=== PATIENT | female | born 1975 | race Caucasian/White ===

== ENCOUNTER 2017-09-12 18:38 | Emergency (ER) | payer MEDICARE, MEDICAID ==
[~2017-09-12] VITALS: Ht 170.2 cm; Wt 84.1 kg
[~2017-09-12 18:38] MED LIST: CLON1TAB4 PO; CLOZ100T13 PO; HALO20TA7 PO; LAMO150T PO; VENL150C58 PO
[2017-09-12] MEDS ORDERED: TETanus/Pertussis (Acell)/Diphther VAC/PF (Tdap-Adult) 0.5ml syringe IMVAC ONE (19:00)
[2017-09-12 19:33] VITALS: BP 123/85
== END 2017-09-12 19:34 | disposition home or self-care (01) ==
LOC: ER 18:38
DX: S20.219A Contusion of unspecified front wall of thorax, initial encounter (principal); F17.210 Nicotine dependence, cigarettes, uncomplicated; F10.10 Alcohol abuse, uncomplicated; V43.52XA Car driver injured in collision with other type car in traffic accident, initial encounter; Y93.89 Activity, other specified; Y92.410 Unspecified street and highway as the place of occurrence of the external cause; Y99.8 Other external cause status
CPT/HCPCS: 71020; 90471; 90715; 93005; 99284

== ENCOUNTER 2018-11-28 14:39 | Outpatient (CLI) | payer MEDICARE, MEDICAID ==
[~2018-11-28 14:39] MED LIST changes: +CLON1TAB12 PO; -CLON1TAB4 PO
== END 2018-11-28 23:59 | disposition home or self-care (01) ==
LOC: RAD 14:39
PROVIDERS: ATTEND Family Medicine
DX: R56.9 Unspecified convulsions (principal); F17.200 Nicotine dependence, unspecified, uncomplicated
CPT/HCPCS: 95816

== ENCOUNTER 2018-12-31 15:55 | Inpatient (IN) | payer MEDICARE, MEDICAID ==
[~2018-12-31] VITALS: Ht 170.2 cm; Wt 70.0 kg
[2018-12-31] MEDS ORDERED: normal saline 1000ml 1,000 ML IV ONE (16:10)
[2018-12-31 16:49] LABS: ALANINE AMINOTRANSFERASE 15 U/L (12-78); ALBUMIN 3.2 G/DL (3.4-5.0); ALBUMIN/GLOBULIN RATIO 1.1 (1.1-1.5); ALKALINE PHOSPHATASE 82 IU/L (46-116); ANION GAP 7 (8-16); ASPARTATE AMINO TRANSFERASE 9 U/L (10-37); BILIRUBIN,TOTAL 0.3 MG/DL (0.1-1.0); BLOOD UREA NITROGEN 5 MG/DL (7-18); CALCIUM 8.2 MG/DL (8.5-10.1); CHLORIDE 105 MMOL/L (99-107); CREATININE 0.84 MG/DL (0.40-0.90); ETHANOL < 0.010 GM/DL (0.0-0.010); GLUCOSE 78 MG/DL (70-104); SODIUM 141 MMOL/L (135-145); TOTAL CARBON DIOXIDE 29.5 MMOL/L (24-32); eGFR 73 ML/MIN
[2018-12-31 16:56] LABS: PARTIAL THROMBOPLASTIN TIME 28 SECONDS (22-32)
[2018-12-31 16:58] LABS: BASOPHILS % (AUTO) 0.3 % (0-1); EOSINOPHILS % (AUTO) 0.4 % (0-6); HEMATOCRIT 41.1 % (35.0-45.0); HEMOGLOBIN 13.7 g/dl (12.0-16.0); LYMPHOCYTES # (AUTO) 2.7 X10'3 (1.1-4.8); LYMPHOCYTES % (AUTO) 33.9 % (21-51); MEAN CORPUSCULAR HEMOGLOBIN 29.9 PG (27.0-31.0); MEAN CORPUSCULAR HGB CONC 33.4 g/dL (33.0-36.5); MEAN CORPUSCULAR VOLUME 89.6 FL (78-98); MEAN PLATELET VOLUME 8.5 FL (7.4-10.4); MONOCYTES # (AUTO) 0.5 X10'3 (0-0.9); NEUTROPHILS # (AUTO) 4.6 X10'3 (1.8-7.7); NEUTROPHILS % (AUTO) 58.4 % (42-75); PLATELET COUNT 197 X10'3 (140-440); RED BLOOD COUNT 4.58 X10'6 (4.20-5.60); RED CELL DISTRIBUTION WIDTH 14.4 % (11.5-14.5); WHITE BLOOD COUNT 7.8 X10'3 (4.5-11.0)
[2018-12-31] MEDS ORDERED: CLOZ25TA36 PO (17:25)
[2018-12-31] MEDS ORDERED: BUSP30TA3 PO (17:25)
[2018-12-31] MEDS ORDERED: BUPR150T27 PO (17:25)
[2018-12-31] MEDS ORDERED: HALO20TA7 PO (17:25)
[2018-12-31] MEDS ORDERED: CLOZ200T PO (17:25)
[2018-12-31] MEDS ORDERED: LAMO200T PO (17:25)
[2018-12-31] MEDS ORDERED: DIVA500T9 PO (17:25)
[2018-12-31] MEDS ORDERED: BENZ2TAB PO (17:25)
--- NOTE | 2018-12-31 17:32 | NUR ---
PATIENT TO CT.
--- NOTE | 2018-12-31 17:38 | NUR ---
patient back from CT
[2018-12-31 17:48] LABS: URINE AMPHETAMINE SCREEN NEGATIVE (Neg); URINE BARBITUATE SCREEN NEGATIVE (Neg); URINE BENZODIAZEPINES SCREEN NEGATIVE (Neg); URINE CANNABINOID SCREEN NEGATIVE (Neg); URINE COCAINE SCREEN NEGATIVE (Neg); URINE METHADONE SCREEN NEGATIVE (Neg); URINE OPIATE SCREEN NEGATIVE (Neg); URINE PHENCYCLIDINE SCREEN NEGATIVE (Neg)
[2018-12-31] MEDS ORDERED: LORazepam 2 mg/ml vial IV ONE (17:50)
--- NOTE | 2018-12-31 17:50 | NUR ---
Patient trying to climb out of bed, standing up in bed. Patient redirected to stay in bed. Dr. Cassidy and Doreen RN notified, no sitters available.
--- NOTE | 2018-12-31 18:02 | NUR ---
patient's at bedside.
--- NOTE | 2018-12-31 18:07 | NUR ---
Patient assisted to bedside comode. Patient able to stand and pivot with standby.
[2018-12-31 18:14] LABS: CLARITY,URINE CLEAR (Clear); COLOR,URINE YELLOW (Yellow); GLUCOSE, URINE NEGATIVE (Neg); KETONES,URINE TRACE mg/dl (Neg); LEUKOCYTE ESTERASE ,URINE NEGATIVE (Neg); NITRITES, URINE NEGATIVE (Neg); OCCULT BLOOD,URINE NEGATIVE (Neg); PH,URINE 7.5 (4.8-8.0); PROTEIN,URINE NEGATIVE (Neg); UROBILINOGEN,URINE 0.2 E.U/dL (0.2-1.0)
[2018-12-31 18:17] LABS: UA COLLECTION TYPE STRAIGHT CATH
[2018-12-31] MEDS ORDERED: magnesium 4gm in 100ml NS 100 ML IV PRN (18:40)
[2018-12-31] MEDS ORDERED: mag hydrox/Alum hydrox/simeth 30ml oral suspension PO PRN (18:40)
[2018-12-31] MEDS ORDERED: acetaminophen 325mg tablet PO PRN ×2 (18:40)
[2018-12-31] MEDS ORDERED: magnesium hydroxide 30ml (MOM) UD suspension PO PRN (18:40)
[2018-12-31] MEDS ORDERED: magnesium Cl slow-release 64mg tablet PO PRN (18:40)
[2018-12-31] MEDS ORDERED: potassium Cl 40MEQ/NS 500ml 500 ML IV PRN ×2 (18:40)
[2018-12-31] MEDS ORDERED: ondansetron/PF 4mg/2ml inj IV PRN (18:40)
[2018-12-31] MEDS ORDERED: magnesium 2GM in 50ml NS 50 ML IV PRN (18:40)
[2018-12-31] MEDS ORDERED: potassium Cl 20 mEq SR tablet PO PRN ×2 (18:40)
[2018-12-31] MEDS: normal saline 1000ml 1,000 ML IV SCH (19:13)
--- NOTE | 2018-12-31 22:27 | NUR ---
RECEIVED PATIENT TO ROOM 4009A. VSS. SITTER AT BEDSIDE.
[2018-12-31 22:29] VITALS: BP 120/97
[2019-01-01] MEDS: normal saline 1000ml 1,000 ML IV SCH ×2 (05:31→17:18)
[2019-01-01 06:00] VITALS: BP 105/70
[2019-01-01 06:02] LABS: BASOPHILS % (AUTO) 0.5 % (0-1); EOSINOPHILS # (AUTO) 0.1 X10'3 (0-0.9); EOSINOPHILS % (AUTO) 1.3 % (0-6); HEMATOCRIT 39.4 % (35.0-45.0); HEMOGLOBIN 13.2 g/dl (12.0-16.0); LYMPHOCYTES # (AUTO) 2.2 X10'3 (1.1-4.8); LYMPHOCYTES % (AUTO) 33.4 % (21-51); MEAN CORPUSCULAR HGB CONC 33.6 g/dL (33.0-36.5); MEAN CORPUSCULAR VOLUME 89.2 FL (78-98); MEAN PLATELET VOLUME 8.1 FL (7.4-10.4); MONOCYTES # (AUTO) 0.6 X10'3 (0-0.9); MONOCYTES % (AUTO) 8.7 % (2-12); NEUTROPHILS # (AUTO) 3.7 X10'3 (1.8-7.7); NEUTROPHILS % (AUTO) 56.1 % (42-75); PLATELET COUNT 175 X10'3 (140-440); RED BLOOD COUNT 4.41 X10'6 (4.20-5.60); RED CELL DISTRIBUTION WIDTH 14.4 % (11.5-14.5); WHITE BLOOD COUNT 6.6 X10'3 (4.5-11.0)
[2019-01-01 06:12] LABS: ALANINE AMINOTRANSFERASE 13 U/L (12-78); ALBUMIN 2.9 G/DL (3.4-5.0); ALKALINE PHOSPHATASE 80 IU/L (46-116); ANION GAP 6 (8-16); ASPARTATE AMINO TRANSFERASE 8 U/L (10-37); BILIRUBIN,TOTAL 0.3 MG/DL (0.1-1.0); BLOOD UREA NITROGEN 6 MG/DL (7-18); BUN/CREATININE RATIO 7.9 (6.6-38.0); CALCIUM 8.4 MG/DL (8.5-10.1); CHLORIDE 109 MMOL/L (99-107); CREATININE 0.76 MG/DL (0.40-0.90); GLUCOSE 75 MG/DL (70-104); PHOSPHORUS 2.3 MG/DL (2.3-4.5); POTASSIUM 3.9 MMOL/L (3.5-5.1); SODIUM 142 MMOL/L (135-145); TOTAL CARBON DIOXIDE 27.5 MMOL/L (24-32); TOTAL PROTEIN 5.7 G/DL (6.4-8.2); eGFR 82 ML/MIN
--- NOTE | 2019-01-01 06:24 | NUR ---
REPORT GIVEN TO JUSTIN TRIPLETT
[2019-01-01] MEDS: K and/or MAG REPLACEMENT MC SCH (08:00)
[2019-01-01] MEDS: enoxaparin 40mg/0.4ml syringe SQ SCH (08:59)
[2019-01-01 10:00] VITALS: BP 106/64
[2019-01-01] MEDS: LORazepam 2 mg/ml vial IV PRN ×3 (10:50→20:35)
[2019-01-01] MEDS ORDERED: clonazePAM 1mg tablet PO PRN (19:25)
--- NOTE | 2019-01-01 19:55 | NUR ---
Patient in room ORTHO 4009. I have received report from IOANA South and had the opportunity to ask questions and assume patient care. Addendum: 01/01/19 at 1956 by Alysha Osuna RN Amended: Links added.
[2019-01-01] MEDS: lamoTRIgine 100mg tablet PO SCH (20:35)
[2019-01-01] MEDS: benztropine 1mg tablet PO SCH (20:35)
[2019-01-01] MEDS: temazepam 15mg capsule PO PRN (20:35)
[2019-01-01] MEDS: busPIRone 15mg tablet PO SCH (20:53)
[2019-01-01] MEDS: divalproex sod 250mg ER (24-hour) tablet PO SCH (20:54)
[2019-01-01 21:00] VITALS: BP 134/84
[2019-01-02 05:00] VITALS: BP 113/73
--- NOTE | 2019-01-02 06:22 | NUR ---
Problems reprioritized. Patient report given, questions answered & plan of care reviewed with IOANA Fuller. Addendum: 01/02/19 at 0622 by Alysha Osuna RN Amended: Links added.
[2019-01-02 06:33] LABS: BASOPHILS % (AUTO) 0.6 % (0-1); EOSINOPHILS # (AUTO) 0.1 X10'3 (0-0.9); EOSINOPHILS % (AUTO) 1.3 % (0-6); HEMOGLOBIN 13.3 g/dl (12.0-16.0); LYMPHOCYTES # (AUTO) 2.6 X10'3 (1.1-4.8); LYMPHOCYTES % (AUTO) 43.7 % (21-51); MEAN CORPUSCULAR HEMOGLOBIN 29.7 PG (27.0-31.0); MEAN CORPUSCULAR HGB CONC 33.3 g/dL (33.0-36.5); MEAN CORPUSCULAR VOLUME 89.2 FL (78-98); MEAN PLATELET VOLUME 8.3 FL (7.4-10.4); MONOCYTES # (AUTO) 0.7 X10'3 (0-0.9); MONOCYTES % (AUTO) 12.5 % (2-12); NEUTROPHILS # (AUTO) 2.5 X10'3 (1.8-7.7); NEUTROPHILS % (AUTO) 41.9 % (42-75); PLATELET COUNT 182 X10'3 (140-440); RED BLOOD COUNT 4.48 X10'6 (4.20-5.60); RED CELL DISTRIBUTION WIDTH 14.2 % (11.5-14.5)
[2019-01-02 06:51] LABS: ALANINE AMINOTRANSFERASE 17 U/L (12-78); ALKALINE PHOSPHATASE 79 IU/L (46-116); ANION GAP 7 (8-16); ASPARTATE AMINO TRANSFERASE 24 U/L (10-37); BILIRUBIN,TOTAL 0.3 MG/DL (0.1-1.0); BLOOD UREA NITROGEN 7 MG/DL (7-18); BUN/CREATININE RATIO 8.9 (6.6-38.0); CALCIUM 8.8 MG/DL (8.5-10.1); CHLORIDE 107 MMOL/L (99-107); CREATININE 0.79 MG/DL (0.40-0.90); GLUCOSE 88 MG/DL (70-104); MAGNESIUM 1.7 MG/DL (1.5-2.4); PHOSPHORUS 2.8 MG/DL (2.3-4.5); POTASSIUM 3.8 MMOL/L (3.5-5.1); SODIUM 143 MMOL/L (135-145); TOTAL CARBON DIOXIDE 28.8 MMOL/L (24-32); TOTAL PROTEIN 5.9 G/DL (6.4-8.2); eGFR 79 ML/MIN
[2019-01-02] MEDS: K and/or MAG REPLACEMENT MC SCH (08:00)
[2019-01-02] MEDS: benztropine 1mg tablet PO SCH ×2 (08:31→22:53)
[2019-01-02] MEDS: divalproex sod 250mg ER (24-hour) tablet PO SCH ×2 (08:32→22:53)
[2019-01-02] MEDS: enoxaparin 40mg/0.4ml syringe SQ SCH (08:33)
[2019-01-02] MEDS: busPIRone 15mg tablet PO SCH ×2 (09:43→22:53)
[2019-01-02] MEDS ORDERED: OLANZAPINE 5 MG TABLET PO PRN (14:20)
[2019-01-02] MEDS ORDERED: haloperidol lactate 5mg/ml inj IM ONE (17:15)
--- NOTE | 2019-01-02 18:26 | NUR ---
PATIENT REPORT RECEIVED FROM CHELO TRIPLETT.
[2019-01-02 22:00] VITALS: BP 128/78
[2019-01-02] MEDS: lamoTRIgine 100mg tablet PO SCH (22:53)
[2019-01-03 05:00] VITALS: BP 132/87
[2019-01-03 06:18] LABS: BASOPHILS % (AUTO) 0.7 % (0-1); EOSINOPHILS # (AUTO) 0.1 X10'3 (0-0.9); EOSINOPHILS % (AUTO) 1.5 % (0-6); HEMATOCRIT 40.7 % (35.0-45.0); HEMOGLOBIN 13.9 g/dl (12.0-16.0); LYMPHOCYTES # (AUTO) 2.8 X10'3 (1.1-4.8); LYMPHOCYTES % (AUTO) 45.5 % (21-51); MEAN CORPUSCULAR HGB CONC 34.2 g/dL (33.0-36.5); MEAN CORPUSCULAR VOLUME 87.9 FL (78-98); MEAN PLATELET VOLUME 8.5 FL (7.4-10.4); MONOCYTES # (AUTO) 0.6 X10'3 (0-0.9); MONOCYTES % (AUTO) 10.1 % (2-12); NEUTROPHILS # (AUTO) 2.6 X10'3 (1.8-7.7); NEUTROPHILS % (AUTO) 42.2 % (42-75); PLATELET COUNT 189 X10'3 (140-440); RED BLOOD COUNT 4.63 X10'6 (4.20-5.60); RED CELL DISTRIBUTION WIDTH 14.3 % (11.5-14.5); WHITE BLOOD COUNT 6.2 X10'3 (4.5-11.0)
[2019-01-03 06:21] LABS: ALANINE AMINOTRANSFERASE 30 U/L (12-78); ALBUMIN 3.2 G/DL (3.4-5.0); ALKALINE PHOSPHATASE 82 IU/L (46-116); ANION GAP 8 (8-16); ASPARTATE AMINO TRANSFERASE 39 U/L (10-37); BILIRUBIN,TOTAL 0.3 MG/DL (0.1-1.0); BLOOD UREA NITROGEN 7 MG/DL (7-18); BUN/CREATININE RATIO 8.5 (6.6-38.0); CALCIUM 9.2 MG/DL (8.5-10.1); CHLORIDE 102 MMOL/L (99-107); CREATININE 0.82 MG/DL (0.40-0.90); GLUCOSE 100 MG/DL (70-104); MAGNESIUM 1.6 MG/DL (1.5-2.4); PHOSPHORUS 3.3 MG/DL (2.3-4.5); POTASSIUM 3.7 MMOL/L (3.5-5.1); SODIUM 139 MMOL/L (135-145); TOTAL CARBON DIOXIDE 29.3 MMOL/L (24-32); TOTAL PROTEIN 6.3 G/DL (6.4-8.2); eGFR 75 ML/MIN
--- NOTE | 2019-01-03 06:54 | NUR ---
PATIENT REPORT GIVEN TO JENNIFER TRIPLETT.
[2019-01-03] MEDS: benztropine 1mg tablet PO SCH ×2 (07:44→21:42)
[2019-01-03] MEDS: busPIRone 15mg tablet PO SCH ×2 (07:44→21:42)
[2019-01-03] MEDS: divalproex sod 250mg ER (24-hour) tablet PO SCH ×2 (07:44→21:42)
[2019-01-03] MEDS: enoxaparin 40mg/0.4ml syringe SQ SCH (07:45)
[2019-01-03 10:00] VITALS: BP 112/79
[2019-01-03 18:00] VITALS: BP 142/94
--- NOTE | 2019-01-03 18:23 | NUR ---
PATIENT REPORT RECEIVED FROM JENNIFER TRIPLETT.
[2019-01-03] MEDS: lamoTRIgine 100mg tablet PO SCH (21:42)
[2019-01-03 22:00] VITALS: BP 116/75
[2019-01-04 05:00] VITALS: BP 110/50
--- NOTE | 2019-01-04 06:38 | NUR ---
PATIENT REPORT GIVEN TO JENNIFER TRIPLETT.
[2019-01-04 06:47] LABS: BASOPHILS % (AUTO) 0.7 % (0-1); EOSINOPHILS # (AUTO) 0.1 X10'3 (0-0.9); EOSINOPHILS % (AUTO) 1.9 % (0-6); HEMATOCRIT 42.3 % (35.0-45.0); HEMOGLOBIN 14.4 g/dl (12.0-16.0); LYMPHOCYTES % (AUTO) 46.2 % (21-51); MEAN CORPUSCULAR HEMOGLOBIN 30.1 PG (27.0-31.0); MEAN CORPUSCULAR HGB CONC 34.1 g/dL (33.0-36.5); MEAN CORPUSCULAR VOLUME 88.4 FL (78-98); MEAN PLATELET VOLUME 8.2 FL (7.4-10.4); MONOCYTES # (AUTO) 0.6 X10'3 (0-0.9); MONOCYTES % (AUTO) 9.6 % (2-12); NEUTROPHILS # (AUTO) 2.7 X10'3 (1.8-7.7); NEUTROPHILS % (AUTO) 41.6 % (42-75); PLATELET COUNT 207 X10'3 (140-440); RED BLOOD COUNT 4.79 X10'6 (4.20-5.60); RED CELL DISTRIBUTION WIDTH 14.2 % (11.5-14.5); WHITE BLOOD COUNT 6.5 X10'3 (4.5-11.0)
[2019-01-04 07:05] LABS: ALANINE AMINOTRANSFERASE 30 U/L (12-78); ALBUMIN 3.3 G/DL (3.4-5.0); ALKALINE PHOSPHATASE 83 IU/L (46-116); ANION GAP 7 (8-16); ASPARTATE AMINO TRANSFERASE 30 U/L (10-37); BILIRUBIN,TOTAL 0.3 MG/DL (0.1-1.0); BLOOD UREA NITROGEN 12 MG/DL (7-18); BUN/CREATININE RATIO 14.3 (6.6-38.0); CALCIUM 9.1 MG/DL (8.5-10.1); CHLORIDE 103 MMOL/L (99-107); CREATININE 0.84 MG/DL (0.40-0.90); GLUCOSE 83 MG/DL (70-104); MAGNESIUM 1.8 MG/DL (1.5-2.4); PHOSPHORUS 3.5 MG/DL (2.3-4.5); POTASSIUM 3.9 MMOL/L (3.5-5.1); SODIUM 139 MMOL/L (135-145); TOTAL CARBON DIOXIDE 28.9 MMOL/L (24-32); TOTAL PROTEIN 6.7 G/DL (6.4-8.2); eGFR 73 ML/MIN
[2019-01-04] MEDS: K and/or MAG REPLACEMENT MC SCH (07:18)
[2019-01-04] MEDS: divalproex sod 250mg ER (24-hour) tablet PO SCH ×2 (07:23→20:23)
[2019-01-04] MEDS: benztropine 1mg tablet PO SCH ×2 (07:24→20:23)
[2019-01-04] MEDS: enoxaparin 40mg/0.4ml syringe SQ SCH (07:24)
[2019-01-04] MEDS: busPIRone 15mg tablet PO SCH ×2 (07:24→20:23)
[2019-01-04 09:31] VITALS: BP 88/62
[2019-01-04 18:00] VITALS: BP 123/65
--- NOTE | 2019-01-04 18:15 | NUR ---
Patient in room ORTHO 4009. I have received report from IOANA Bridges and had the opportunity to ask questions and assume patient care.
--- NOTE | 2019-01-04 18:26 | NUR ---
Report to Iwona TRIPLETT
[2019-01-04] MEDS: lamoTRIgine 100mg tablet PO SCH (20:23)
[2019-01-04] MEDS: nicotine 21mg patch - 24 hr TD SCH (21:26)
[2019-01-04] MEDS: temazepam 15mg capsule PO PRN (21:26)
[2019-01-04 22:00] VITALS: BP 125/85
[2019-01-05 05:00] VITALS: BP 119/48
[2019-01-05 06:12] LABS: BASOPHILS % (AUTO) 0.4 % (0-1); EOSINOPHILS # (AUTO) 0.1 X10'3 (0-0.9); EOSINOPHILS % (AUTO) 2.2 % (0-6); HEMATOCRIT 42.7 % (35.0-45.0); HEMOGLOBIN 14.3 g/dl (12.0-16.0); LYMPHOCYTES # (AUTO) 3.1 X10'3 (1.1-4.8); LYMPHOCYTES % (AUTO) 49.9 % (21-51); MEAN CORPUSCULAR HEMOGLOBIN 29.7 PG (27.0-31.0); MEAN CORPUSCULAR HGB CONC 33.5 g/dL (33.0-36.5); MEAN CORPUSCULAR VOLUME 88.5 FL (78-98); MEAN PLATELET VOLUME 8.3 FL (7.4-10.4); MONOCYTES # (AUTO) 0.7 X10'3 (0-0.9); MONOCYTES % (AUTO) 11.2 % (2-12); NEUTROPHILS # (AUTO) 2.3 X10'3 (1.8-7.7); NEUTROPHILS % (AUTO) 36.3 % (42-75); PLATELET COUNT 203 X10'3 (140-440); RED BLOOD COUNT 4.82 X10'6 (4.20-5.60); RED CELL DISTRIBUTION WIDTH 14.3 % (11.5-14.5); WHITE BLOOD COUNT 6.3 X10'3 (4.5-11.0)
[2019-01-05 06:28] LABS: ALANINE AMINOTRANSFERASE 28 U/L (12-78); ALBUMIN 3.1 G/DL (3.4-5.0); ALKALINE PHOSPHATASE 76 IU/L (46-116); ANION GAP 3 (8-16); ASPARTATE AMINO TRANSFERASE 23 U/L (10-37); BILIRUBIN,TOTAL 0.2 MG/DL (0.1-1.0); BLOOD UREA NITROGEN 13 MG/DL (7-18); BUN/CREATININE RATIO 14.1 (6.6-38.0); CALCIUM 9.2 MG/DL (8.5-10.1); CHLORIDE 101 MMOL/L (99-107); CREATININE 0.92 MG/DL (0.40-0.90); GLUCOSE 89 MG/DL (70-104); MAGNESIUM 1.7 MG/DL (1.5-2.4); PHOSPHORUS 3.9 MG/DL (2.3-4.5); POTASSIUM 3.7 MMOL/L (3.5-5.1); SODIUM 137 MMOL/L (135-145); TOTAL CARBON DIOXIDE 33.4 MMOL/L (24-32); TOTAL PROTEIN 6.2 G/DL (6.4-8.2); eGFR 66 ML/MIN
--- NOTE | 2019-01-05 06:34 | NUR ---
Problems reprioritized. Patient report given, questions answered & plan of care reviewed with IOANA Bridges.
[2019-01-05] MEDS: benztropine 1mg tablet PO SCH (08:00)
[2019-01-05] MEDS: K and/or MAG REPLACEMENT MC SCH (08:01)
[2019-01-05] MEDS: busPIRone 15mg tablet PO SCH ×2 (08:22→20:10)
[2019-01-05] MEDS: divalproex sod 250mg ER (24-hour) tablet PO SCH ×2 (08:22→20:11)
[2019-01-05] MEDS: enoxaparin 40mg/0.4ml syringe SQ SCH (08:22)
[2019-01-05] MEDS: nicotine 21mg patch - 24 hr TD SCH (08:23)
[2019-01-05 10:00] VITALS: BP 154/63
--- NOTE | 2019-01-05 13:44 | NUR ---
Page to Dr. Anderson MESSAGE: [id number] Corky Nicholson Do you want the patient to continue to have a sitter? We can apply a tabs alarm. Yuliana [id number]
--- NOTE | 2019-01-05 13:45 | NUR ---
Orders received from Dr. Anderson for no sitter.
[2019-01-05 18:00] VITALS: BP 111/57
[2019-01-05] MEDS: lamoTRIgine 100mg tablet PO SCH (20:10)
[2019-01-05] MEDS ORDERED: clozapine 25mg tablet PO SCH (21:00)
[2019-01-05 22:00] VITALS: BP 109/74
[2019-01-06 06:00] VITALS: BP 93/49
--- NOTE | 2019-01-06 06:36 | NUR ---
Problems reprioritized. Patient report given, questions answered & plan of care reviewed with IOANA Narvaez.
[2019-01-06] MEDS: divalproex sod 250mg ER (24-hour) tablet PO SCH ×2 (08:00→20:59)
[2019-01-06] MEDS: busPIRone 15mg tablet PO SCH ×2 (08:00→21:00)
[2019-01-06] MEDS: K and/or MAG REPLACEMENT MC SCH (08:00)
[2019-01-06] MEDS: enoxaparin 40mg/0.4ml syringe SQ SCH (09:31)
[2019-01-06] MEDS: nicotine 21mg patch - 24 hr TD SCH (09:31)
[2019-01-06 10:00] VITALS: BP 148/104
[2019-01-06 18:00] VITALS: BP_SYST 84; BP_SYST 93; BP_DIAS 48; BP_DIAS 49
--- NOTE | 2019-01-06 18:10 | NUR ---
Problems reprioritized. Patient report given, questions answered & plan of care reviewed with Anushka TRIPLETT.
--- NOTE | 2019-01-06 19:04 | NUR ---
REPORT REC'D FROM IOANA OH.
[2019-01-06] MEDS: clozapine 100mg tablet PO SCH (20:59)
[2019-01-06] MEDS: lamoTRIgine 100mg tablet PO SCH (21:00)
[2019-01-06 22:00] VITALS: BP 110/67
[2019-01-07 06:00] VITALS: BP 98/54
--- NOTE | 2019-01-07 06:15 | NUR ---
Patient in room ORTHO 4009. I have received report from Jesus TRIPLETT and had the opportunity to ask questions and assume patient care.
[2019-01-07] MEDS: enoxaparin 40mg/0.4ml syringe SQ SCH (08:00)
[2019-01-07] MEDS: K and/or MAG REPLACEMENT MC SCH (08:00)
[2019-01-07] MEDS: busPIRone 15mg tablet PO SCH ×2 (09:06→21:13)
[2019-01-07] MEDS: divalproex sod 250mg ER (24-hour) tablet PO SCH ×2 (09:06→21:14)
[2019-01-07] MEDS: nicotine 21mg patch - 24 hr TD SCH (09:07)
[2019-01-07 10:00] VITALS: BP 109/61
--- NOTE | 2019-01-07 11:34 | NUR ---
Initial: Pt admit w/ ALOC remains AOx2; r/t polypharmacy per MD note. Psych meds being adjusted at this time. Pt PO improved past 2 days to 50-75% avg regular meals meeting needs. [facility] 01/05. Will monitor for ONS needs if PO regresses. Rec: 1. continue regular diet 2. monitor for ONS needs 3. wt per rx Addendum: 01/07/19 at [address] Amended: Links added.
[2019-01-07 18:00] VITALS: BP 134/82
--- NOTE | 2019-01-07 18:10 | NUR ---
Problems reprioritized. Patient report given, questions answered & plan of care reviewed with Yasmine cantu.
--- NOTE | 2019-01-07 18:18 | NUR ---
REPORT REC'D FROM IOANA OH.
[2019-01-07] MEDS: lamoTRIgine 100mg tablet PO SCH (21:13)
[2019-01-07] MEDS: clozapine 100mg tablet PO SCH (21:13)
[2019-01-07 22:00] VITALS: BP 130/76
[2019-01-08 06:00] VITALS: BP 109/66
--- NOTE | 2019-01-08 06:19 | NUR ---
report given to pepe Narvaez.
[2019-01-08] MEDS: K and/or MAG REPLACEMENT MC SCH (08:00)
[2019-01-08] MEDS: busPIRone 15mg tablet PO SCH (08:47)
[2019-01-08] MEDS: nicotine 21mg patch - 24 hr TD SCH (08:48)
[2019-01-08] MEDS: enoxaparin 40mg/0.4ml syringe SQ SCH (08:48)
[2019-01-08] MEDS: divalproex sod 250mg ER (24-hour) tablet PO SCH (09:17)
[2019-01-08 10:00] VITALS: BP 106/60
[2019-01-08] MEDS ORDERED: NICO-687 TD (12:39)
[2019-01-08] MEDS ORDERED: CLOZ100T13 PO (12:39)
== END 2019-01-08 14:35 | disposition home or self-care (01) | DRG 93 ==
LOC: ER 15:55 → ORTHO 4S 18:45 → EDBEDREQ 21:55 → CMPBEDREQ 22:17
PROVIDERS: ADMIT Family Medicine; ATTEND Family Medicine
DX: G92 Toxic encephalopathy (principal); T42.6X5A Adverse effect of other antiepileptic and sedative-hypnotic drugs, initial encounter; G40.909 Epilepsy, unspecified, not intractable, without status epilepticus; T50.995A Adverse effect of other drugs, medicaments and biological substances, initial encounter; F25.9 Schizoaffective disorder, unspecified; F17.210 Nicotine dependence, cigarettes, uncomplicated; F31.9 Bipolar disorder, unspecified; Y92.89 Other specified places as the place of occurrence of the external cause; Z98.51 Tubal ligation status; Z79.899 Other long term (current) drug therapy
CPT/HCPCS: 36415; 70450; 70544; 70551; 71045; 80053; 80164; 80305; 80320; 81003; 82140; 83735; 84100; 85025; 85610; 85730; 87070; 93005; 96360; 96361; 97110; 97116; 97530; 99285; G0378; J1630; J1650; J2060; J7030

== ENCOUNTER 2019-01-12 16:17 | Inpatient (IN) | payer MEDICARE, MEDICAID ==
[~2019-01-12] VITALS: Ht 170.2 cm; Wt 75.2 kg
[~2019-01-12 16:17] MED LIST changes: +BUSP30TA3 PO; -CLON1TAB12 PO; -CLOZ100T13 PO; +CLOZ100T31 PO; +DIVA500T9 PO; -HALO20TA7 PO; -LAMO150T PO; +LAMO200T PO; +VENL150C2 PO; -VENL150C58 PO
[2019-01-12] MEDS ORDERED: acetaminophen 325mg tablet PO PRN ×2 (17:15)
[2019-01-12] MEDS ORDERED: LORazepam 1 MG tablet PO PRN (17:15)
[2019-01-12] MEDS ORDERED: tuberculin, purif. prot. deriv. 5 units/0.1ml ID ONE (17:15)
[2019-01-12] MEDS ORDERED: hydrOXYzine 25 MG tablet PO PRN (17:15)
[2019-01-12] MEDS ORDERED: loperamide 2mg capsule PO PRN (17:15)
[2019-01-12] MEDS ORDERED: mag hydrox/Alum hydrox/simeth 30ml oral suspension PO PRN (17:15)
[2019-01-12] MEDS ORDERED: magnesium hydroxide 30ml (MOM) UD suspension PO PRN (17:15)
[2019-01-12 17:18] VITALS: BP 100/62
[2019-01-12 20:00] VITALS: BP 98/62
[2019-01-12] MEDS ORDERED: CLOZAPINE 25 MG oral disintegrating tablet PO SCH (21:00)
[2019-01-12] MEDS: busPIRone 15mg tablet PO SCH (21:03)
[2019-01-12] MEDS: divalproex sod 250mg ER (24-hour) tablet PO SCH (21:04)
[2019-01-12] MEDS: lamoTRIgine 100mg tablet PO SCH (21:04)
[2019-01-12] MEDS: clozapine 25mg tablet PO SCH (21:05)
[2019-01-12] MEDS: NICOTINE POLACRILEX 4 MG LOZENGE BC PRN (21:20)
[2019-01-12 21:24] LABS: CLARITY,URINE CLEAR (Clear); COLOR,URINE YELLOW (Yellow); GLUCOSE, URINE NEGATIVE (Neg); KETONES,URINE NEGATIVE (Neg); LEUKOCYTE ESTERASE ,URINE NEGATIVE (Neg); NITRITES, URINE NEGATIVE (Neg); OCCULT BLOOD,URINE NEGATIVE (Neg); PROTEIN,URINE NEGATIVE (Neg); UROBILINOGEN,URINE 0.2 E.U/dL (0.2-1.0)
[2019-01-12 21:25] LABS: UA COLLECTION TYPE CLN CATCH MIDSTREAM
--- NOTE | 2019-01-13 04:24 | NUR ---
Nursing Progress Note: Legal hold:5150 Client on voluntary/involuntary status for GD Report received from Negrito Otoole RN with use of SBAR Why are they here: 43 year old female with dx of Schizoaffective D/O, presented to ER on 01/10/19 with due to c/o confusion. Pt was released from the hospital one week ago after being admitted to medical floor for similar complaint (altered mental status), pt was put on meds and family feels like they are not helping her, causing her to "ramble" and generally be more confused. She was placed on a 5150 by [facility] for GD due to confusion, disorganized thinking, mood lability, appeared to be hallucinating and is unable to care for her basic needs. Assessment What has happened this shift: Initially saw pt in the hallway and I introduced myself as her nurse. She was pleasant, we briefly discussed her meds, but she was somewhat confused about the questions I was asking her in regards to them, so I told her I would review her med regimen and get back to her. She then requested to use the phone to call her family. She required some assistance dialing the phone as she was having difficulties. I went down to pts room a few minutes after she was done using the phone to ask if she wanted her dinner tray that had arrived, and pt just layed there on her bed with her eyes closed and would not respond to me. It was unclear at that time why she was acting this way suddenly, but pt came back up to nursing station afterwards to let me know she was upset because she had been unable to contact her or daughter, but had left messages, and explained she knows they are busy and is working ect. At that same time the pts daughter returned her call. After this pt felt better, ate her dinner and then requested shampoo and conditioner and wanted to take a shower, which she did. I administered her medications and she was able to state some of her meds that she was taking and denied any current issues from the meds. She was able to voice her frustration with being in the hospital again and wanting to be with her family, also difficulty with not being able to smoke. Pt went to sleep after meds and slept well throughout the night. S/I, H/I:denies A/VH: denied any this shift (but did report hearing them earlier in the day)and did not appear to be responding to internal stimuli Sleep:pt slept well throughout the night ADL's:pt took shower this shift and ate 100% of her dinner, she is independent in all ADLS Group attendance:no groups scheduled this shift Were meds taken:pt took meds without problems Any med S/E: none reported or observed at this time, other that the confusion at times that initially brought pt to the ER. Mental Status Exam Appearance:wearing green hospital scrubs, hygiene and grooming are good, she is wearing a nose ring Eye contact:good Behavior:pt was cooperative, upset due to missing family but was able to process and once she spoke with them she felt better Speech:clear, coherent, normal volume Mood:pt sad, missing family, wanting to go home Affect:blunted Thought process:pt was confused at times, but was able to hold a conversation and stay on track Thought Content:pt was focused on wanting to go home to family, missing her family, initially upset due to inability to contact her or daughter Cognition:impaired at this time Insight:impaired Judgment:impaired Interventions PRN's used:pt received nicotine lozenge due to cigarette cravings Therapeutic interventions:1:1, assessment of pts symptoms, provided support and reassurance, medication administration and monitoring for adverse effects, sleep monitoring Restraints/seclusion/emergency medication:none Justification of Continued Inpatient Treatment:pt with hx of schizoaffective d/o admitted for grave disability due confusion, disorganized thoughts, mood lability, unable to care for basic needs. Pt needs close monitoring of her condition as well as medication changes to help improve her mental status.
--- NOTE | 2019-01-13 06:58 | NUR ---
Admission note: Pt admitted by Duane Amaral for Dr Baeza. PT admitted for psychosis to room 329 and arrived 1650 on 01/12/19. Pt admitted on 515 for gravely disabled. Pt presents confused, only oriented to self, unable to answer many questions appropriately, poor sleep and energy, mood lability and appears hallucinating. Pt unable to care for basic needs. Pt cooperative with the admission process. Pt ordered nicotine replacements. Pt oriented to the unit.
[2019-01-13] MEDS: nicotine 21mg patch - 24 hr TD SCH (07:59)
[2019-01-13 08:00] VITALS: BP 91/55
[2019-01-13] MEDS: busPIRone 15mg tablet PO SCH ×2 (08:00→20:28)
[2019-01-13] MEDS: divalproex sod 250mg ER (24-hour) tablet PO SCH ×2 (08:00→20:27)
[2019-01-13] MEDS: venlafaxine XR 75mg capsule (Q24H) PO SCH (08:00)
[2019-01-13] MEDS: NICOTINE POLACRILEX 4 MG LOZENGE BC PRN ×5 (08:39→20:29)
[2019-01-13 11:42] LABS: VALPROATE 105 UG/ML (50-100)
--- NOTE | 2019-01-13 15:02 | NUR ---
Nurse progress note: Legal hold:[5150] Client on involuntary status for GD. Why are they here:[Pt is here for confusion, disorientation, disorganized, unable to answer questions, unable to formulate a plan for food, clothing and fci]. Assessment What has happened this shift: Pt was in bed sleeping at change of shift. Pt woke for breakfast and requested her nicotine patch and it was placed on her. After breakfast pt requested her nicotine patch and lozenge. Gave pt a lozenge and explained she already had patch on. Pt then requested to go out and have a cigarette. Pt spends most of the day ambulating the hallways often stopping by nurse station smiling and staring in through the windows. Pt in afternoon becomes tearful stating she wants to leave so she can have a cigarette and go home. Explained to pt we will get pt home when she is feeling better and pt has made great improvements since she first arrived at hospital unable to ambulate. Pt is now ambulating well without assistance. S/I, H/I:[denies] A/VH: [denies] Sleep:[States she slept well] ADL's:[independant] Group attendance:[decided to sleep during group] Were meds taken:[yes] Any med S/E[denies] Mental Status Exam Appearance:[Wears green scrubs with nose ring] Eye contact:[good] Behavior:[cooperative] Speech:[clear, coherent] Mood:[misses family and cigarettes] Affect:[sometimes looks happy but mostly sad] Thought process:[confused at times and forgetful] Thought Content:[Pt focused on seeing Dr Baeza tomorrow so she can convince him she can go home.] Cognition:[impaired] Insight:[poor] Judgment:[impaired] Interventions PRN's used:[nicotine lozenges] Therapeutic interventions:[support,reassurance] Restraints/seclusion/emergency medication:[NA] Justification of Continued Inpatient Treatment:[Pt has Shcizoaffective disorder and admitted for grave disability for confusion, disorganized thoughts, mood lability. Pt requires monitoring for medication changes.]
[2019-01-13 15:19] LABS: CHOL/HDL RATIO 5.3 (0.00-4.99); CHOLESTEROL 158 MG/DL (0-200); HDL CHOLESTEROL 30 MG/DL (35-60); LDL CHOLESTEROL 97 MG/DL (50-100); TRIGLYCERIDES 261 MG/DL (20-135)
[2019-01-13 19:55] VITALS: BP 103/36
[2019-01-13] MEDS: lamoTRIgine 100mg tablet PO SCH (20:28)
[2019-01-13] MEDS: clozapine 25mg tablet PO SCH (20:29)
--- NOTE | 2019-01-14 00:21 | NUR ---
Nurse progress note: Legal hold: 5150 Client on involuntary status for GD. Why are they here: Pt is here for confusion, disorientation, disorganized, unable to answer questions, unable to formulate a plan for food, clothing and retirement. Assessment Pt up in group room at start of shift. Pt is pleasant and cooperative. 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 Pt says she is feeling much better and wants to go home. She is looking forward to coming to visit and called him on the phone. here to visit he is kind and attentive to the pt. He encouraged her to stay until she is better and her medications are adjusted. He requested that before discharge someone go over all the pts meds with him since he is the administering her medications. S/I, H/I: denies A/VH: denies Sleep: States she slept well ADL's: independent Group attendance: decided to sleep during group Were meds taken: yes Any med S/E denies Mental Status Exam Appearance: Wears green scrubs with nose ring Eye contact: good Behavior: cooperative Speech: clear, coherent Mood: misses family and cigarettes Affect: sometimes looks happy but mostly sad Thought process: confused at times and forgetful Thought Content: Pt focused on seeing Dr Baeza tomorrow so she can convince him she can go home. Cognition: impaired Insight: poor Judgment: impaired Interventions PRN's used: nicotine lozenges Therapeutic interventions: support,reassurance Restraints/seclusion/emergency medication: NA Justification of Continued Inpatient Treatment: Pt has Schizoaffective disorder and admitted for grave disability for confusion, disorganized thoughts, mood lability. Pt requires monitoring for medication changes.
[2019-01-14] MEDS: divalproex sod 250mg ER (24-hour) tablet PO SCH ×2 (07:41→20:18)
[2019-01-14] MEDS: venlafaxine XR 75mg capsule (Q24H) PO SCH (07:41)
[2019-01-14] MEDS: busPIRone 15mg tablet PO SCH ×2 (07:41→20:17)
[2019-01-14] MEDS: nicotine 21mg patch - 24 hr TD SCH (07:45)
[2019-01-14] MEDS: NICOTINE POLACRILEX 4 MG LOZENGE BC PRN ×3 (07:56→14:42)
[2019-01-14 08:00] VITALS: BP 102/60
--- NOTE | 2019-01-14 17:05 | NUR ---
Nurse progress note: Legal hold: 5150 Client on involuntary status for GD. Report received from nurse with use of SBAR: Katty TRIPLETT Why are they here: Pt is here for confusion, disorientation, disorganized, unable to answer questions, unable to formulate a plan for food, clothing and nursing home. Assessment What has happened this shift: Received Pt in bed sleeping w/o distress at change of shift. Pt woke for breakfast and requested her nicotine patch and it was placed on her. Also given nicotine lozenge. Attended meals and groups and interacted well and appropriately with staff and other Pts. Pt spends most of the day ambulating the hallways often stopping by nurse station smiling and staring in through the windows. Pt excited about visiting her tonite. Has hearing difficulties and needs to be spoken to loudly and directly at times. Pleasant and cooperative in conversation and has adjusted well to being on CB as a place to get help, and knows her meds are being adjusted. S/I, H/I: Pt denies A/VH: Ptdenies Sleep: 8 hrs per noc shift ADL's: Independant Group attendance: Yes Were meds taken: Yes Any med S/E Pt denies Mental Status Exam Appearance: Wearing green scrubs Eye contact: Good Behavior: Cooperative Speech: Clear, coherent Mood: Misses family and cigarettes Affect: Bright at times and flat others Thought process: Confused at times and forgetful Thought Content: Nicotine replacement Cognition: Impaired Insight: Poor Judgment: Impaired Interventions PRN's used: Nicotine lozenges Therapeutic interventions: 1:1 assessment; maintain therapeutic milieu; therapeutic conversation and 1:1 interactions; support,reassurance Restraints/seclusion/emergency medication: NA Justification of Continued Inpatient Treatment: Pt has Shcizoaffective disorder and admitted for grave disability for confusion, disorganized thoughts, mood lability. Pt requires monitoring for medication changes.
[2019-01-14 20:00] VITALS: BP 97/48
[2019-01-14] MEDS: lamoTRIgine 100mg tablet PO SCH (20:18)
[2019-01-14] MEDS ORDERED: CLOZAPINE 100 MG TAB.RAPDIS PO SCH (21:00)
[2019-01-14] MEDS ORDERED: clozapine 25mg tablet PO SCH (21:00)
--- NOTE | 2019-01-15 01:56 | NUR ---
Nurse progress note: Legal hold: 5150 Client on involuntary status for GD. Why are they here: Pt is here for confusion, disorientation, disorganized, unable to answer questions, unable to formulate a plan for food, clothing and halfway. Assessment Pt up in group room at start of shift. came for visit. Pt is pleasant and cooperative. Pt continues to say she wants to go home but she says her wants her to stay till her medication is adjusted. Pt expects to go home Monday. After husbands visit and snack. pt went to room and fell asleep. S/I, H/I: denies A/VH: denies Sleep: sleeping at this time. ADL's: independent Group attendance: Up to group room for snack. Were meds taken: yes Any med S/E denies Mental Status Exam Appearance: Wears green scrubs with nose ring Eye contact: good Behavior: cooperative Speech: clear, coherent Mood: pleasant cooperative Affect: bright Thought process: logical Thought Content: Pt focused going home on Monday. Cognition: impaired Insight: poor Judgment: impaired Interventions PRN's used: nicotine lozenges Therapeutic interventions: support,reassurance. 1:1 assess cognition and mood. Medication administration, monitoring and education. Restraints/seclusion/emergency medication: NA Justification of Continued Inpatient Treatment: Pt has Schizoaffective disorder and admitted for grave disability for confusion, disorganized thoughts, mood lability. Pt requires monitoring for medication changes.
[2019-01-15] MEDS: nicotine 21mg patch - 24 hr TD SCH (07:09)
[2019-01-15] MEDS: busPIRone 15mg tablet PO SCH ×2 (07:09→20:47)
[2019-01-15] MEDS: venlafaxine XR 75mg capsule (Q24H) PO SCH (07:09)
[2019-01-15] MEDS: NICOTINE POLACRILEX 4 MG LOZENGE BC PRN ×4 (07:09→19:04)
[2019-01-15] MEDS: divalproex sod 250mg ER (24-hour) tablet PO SCH ×2 (07:09→20:48)
[2019-01-15] MEDS: carbamide peroxide 15ml bottle EACH EAR SCH ×2 (07:13→20:45)
[2019-01-15 08:00] VITALS: BP 99/48
--- NOTE | 2019-01-15 15:30 | NUR ---
Nurse progress note: Legal hold: 5150 Client on involuntary status for GD. Report received from nurse with use of SBAR: IOANA Mahan Why are they here: Pt is here for confusion, disorientation, disorganized, unable to answer questions, unable to formulate a plan for food, clothing and fdc. Assessment What has happened this shift: Patient was asleep at change of shift and up for breakfast. Patient pleasant and smiling. Patient is compliant with medication. Patient asks for nicotine lozenges several times during the day. Patient does not appear to be in any distress. Patient denies SI/HI/AVH. Patient attended both groups today. Patient's legal status changed to Voluntary this afternoon with Dr Baeza advising patient. Patient states she wants to go home tomorrow. Patient has HX of developmental delays with unknown baseline. Patient is able to take of her ADLs. Patient lives with her . S/I, H/I: Pt denies A/VH: Ptdenies Sleep: 8 hrs ADL's: Independant Group attendance: Yes Were meds taken: Yes Any med S/E Pt denies Mental Status Exam Appearance: Wearing green scrubs Eye contact: Good Behavior: Cooperative Speech: Clear, coherent Mood: Misses family and cigarettes Affect: Bright at times and flat others Thought process: Disorganized at times and forgetful Thought Content: Nicotine replacement Cognition: Impaired Insight: Poor Judgment: Impaired Interventions PRN's used: Nicotine lozenges Therapeutic interventions: 1:1 assessment; maintain therapeutic milieu; therapeutic conversation and 1:1 interactions; support,reassurance Restraints/seclusion/emergency medication: NA Justification of Continued Inpatient Treatment: Pt has Shcizoaffective disorder and admitted for grave disability for confusion, disorganized thoughts, mood lability. Pt requires monitoring for medication changes.
[2019-01-15 19:55] VITALS: BP 90/58
[2019-01-15] MEDS: lamoTRIgine 100mg tablet PO SCH (20:47)
[2019-01-15] MEDS ORDERED: CLOZAPINE 100 MG TAB.RAPDIS PO SCH (21:00)
--- NOTE | 2019-01-16 00:45 | NUR ---
Nurse progress note: Legal hold: 5150 Client on involuntary status for GD. Why are they here: Pt is here for confusion, disorientation, disorganized, unable to answer questions, unable to formulate a plan for food, clothing and longterm. Assessment Pt pleasant and cooperative. here to visit. and pt talked to Dr. Baeza at length about pt home medication regime. Pt is to be discharged in am. She feels she is ready to discharge and is looking forward to it. S/I, H/I: denies A/VH: denies Sleep: sleeping at this time. ADL's: independent Group attendance: Up to group room for snack. Were meds taken: yes Any med S/E denies Mental Status Exam Appearance: Wears green scrubs with nose ring Eye contact: good Behavior: cooperative Speech: clear, coherent Mood: pleasant cooperative Affect: bright Thought process: logical Thought Content: Pt focused going home in am Cognition: impaired Insight: poor Judgment: impaired Interventions PRN's used: nicotine lozenges Therapeutic interventions: support,reassurance. 1:1 assess cognition and mood. Medication administration, monitoring and education. Restraints/seclusion/emergency medication: NA Justification of Continued Inpatient Treatment: Pt has Schizoaffective disorder and admitted for grave disability for confusion, disorganized thoughts, mood lability.Pt to be discharged in AM.
[2019-01-16] MEDS: NICOTINE POLACRILEX 4 MG LOZENGE BC PRN ×2 (06:54→12:13)
[2019-01-16] MEDS: busPIRone 15mg tablet PO SCH (07:51)
[2019-01-16] MEDS: venlafaxine XR 75mg capsule (Q24H) PO SCH (07:51)
[2019-01-16] MEDS: carbamide peroxide 15ml bottle EACH EAR SCH (07:52)
[2019-01-16] MEDS: divalproex sod 250mg ER (24-hour) tablet PO SCH (07:52)
[2019-01-16] MEDS: nicotine 21mg patch - 24 hr TD SCH (07:54)
[2019-01-16 07:59] VITALS: BP 92/48
[2019-01-16] MEDS ORDERED: CLON2TAB11 PO (11:50)
[2019-01-16] MEDS ORDERED: NICO-503 BC (11:54)
[2019-01-16] MEDS ORDERED: NICO-687 TD (11:54)
[2019-01-16] MEDS ORDERED: CLOZ200T PO (11:54)
[2019-01-16] MEDS ORDERED: VENL150T3 PO (11:54)
--- NOTE | 2019-01-16 13:24 | NUR ---
No wounds on admit or during admit to the hospital Addendum: 01/16/19 at 1324 by Lizzy Baeza RN Amended: Links added.
--- NOTE | 2019-01-16 13:50 | NUR ---
aDischarge Note: Patient smiling and calm with . RN gave patient d/c instructions and follow-up instructions. Patient verbalized understanding. All questions were answered. Patient ambulatory, steady gait with who is driving her home. Patient has improved since admission and is no longer disorganized. Patient denies suicidal ideation. Patient was given smoking cessation information and nicotine replacement. Patient has all her valuables. Patient was here less than 21 days.
== END 2019-01-16 13:50 | disposition home or self-care (01) | DRG 885 ==
LOC: ADULT MH 17:03
PROVIDERS: ADMIT Psychiatry & Neurology Psychiatry; ATTEND Psychiatry & Neurology Psychiatry
DX: F25.0 Schizoaffective disorder, bipolar type (principal); G40.909 Epilepsy, unspecified, not intractable, without status epilepticus; F17.210 Nicotine dependence, cigarettes, uncomplicated; F12.90 Cannabis use, unspecified, uncomplicated; H61.20 Impacted cerumen, unspecified ear; F41.0 Panic disorder [episodic paroxysmal anxiety]; R62.50 Unspecified lack of expected normal physiological development in childhood; Z79.899 Other long term (current) drug therapy; Z98.51 Tubal ligation status
CPT/HCPCS: 36415; 80053; 80061; 80164; 80305; 81003; 81025; 83036; 84439; 84443; 85025; 87070; 95816

== ENCOUNTER 2019-06-11 15:30 | Emergency (ER) | payer MEDICARE, MEDICAID ==
[~2019-06-11] VITALS: Ht 170.2 cm; Wt 77.3 kg
[~2019-06-11 15:30] MED LIST changes: +CLON2TAB11 PO; -CLOZ100T31 PO; +CLOZ200T PO; +NICO-503 BC; +NICO-687 TD; -VENL150C2 PO; +VENL150T3 PO
[2019-06-11] MEDS ORDERED: HALO20TA7 PO (17:59)
[2019-06-11] MEDS ORDERED: BUPR150T27 PO (17:59)
[2019-06-11] MEDS ORDERED: BENZ2TAB PO (17:59)
[2019-06-11] MEDS ORDERED: CLON0.5T12 PO (18:02)
[2019-06-11] MEDS ORDERED: CLOZ200T PO (18:06)
--- NOTE | 2019-06-11 18:08 | NUR ---
SPOKE WITH PT, PT DENIES WISH TO HARM HERSELF, VERBALLY CONTRACTED THAT SHE WOULD NOT ATTEMPT TO HURT HERSELF AT HOME, ALONE OR NOT. PT HAS AN APPOINTMENT WITH HER MENTAL HEALTH PROVIDER ON THE . PT'S WAS CALLED, EXPLAINED TO HIM THAT PT COULD NOT BE PLACED ON A HOLD OR KEPT, THAT SHE DOES NOT FIT THAT CRITERIA. NURSE WILL CONTACT [facility] NURSE TO F/U WITH THE PATIENT TOMORROW
--- NOTE | 2019-06-11 18:42 | NUR ---
PAGE SENT TO COP BREAKER TO F/U WITH PT TOMORROW AT HOME
[2019-06-11 18:49] LABS: CLARITY,URINE CLOUDY (Clear); COLOR,URINE YELLOW (Yellow); GLUCOSE, URINE NEGATIVE (Neg); KETONES,URINE TRACE mg/dl (Neg); LEUKOCYTE ESTERASE ,URINE MODERATE (Neg); NITRITES, URINE POSITIVE (Neg); OCCULT BLOOD,URINE TRACE-INTACT (Neg); PH,URINE 6.5 (4.8-8.0); PROTEIN,URINE NEGATIVE (Neg)
[2019-06-11 18:53] VITALS: BP 117/77
[2019-06-11 18:54] LABS: UA COLLECTION TYPE CLN CATCH MIDSTREAM
[2019-06-11 18:56] LABS: BACTERIA,URINE 4+ /HPF (Neg); RBC,URINE NONE SEEN /HPF (0-2); SQUAMOUS EPITHELIAL CELL,UR FEW /LPF (FEW)
== END 2019-06-11 18:55 | disposition home or self-care (01) ==
LOC: ER 15:31
DX: F20.9 Schizophrenia, unspecified (principal); Z51.81 Encounter for therapeutic drug level monitoring; F41.9 Anxiety disorder, unspecified; F32.9 Major depressive disorder, single episode, unspecified; Z79.899 Other long term (current) drug therapy
CPT/HCPCS: 81001; 99284

== ENCOUNTER 2024-08-27 17:15 | Inpatient (IN) | payer MEDICARE ==
[~2024-08-27] VITALS: Ht 170.2 cm; Wt 54.0 kg
[~2024-08-27 17:15] MED LIST changes: +BENZ2TAB PO; +BUPR150T27 PO; -BUSP30TA3 PO; +CLON0.5T4 PO; -CLON2TAB11 PO; -CLOZ200T PO; +CLOZ200T8 PO; +HALO20TA7 PO; -LAMO200T PO; +LAMO200T10 PO; -NICO-503 BC; -NICO-687 TD
[2024-08-27 19:03] LABS: BASOPHILS % (AUTO) 0.5 % (0-1); EOSINOPHILS # (AUTO) 0.1 X10'3 (0-0.9); EOSINOPHILS % (AUTO) 1.1 % (0-6); HEMATOCRIT 38.2 % (35.0-45.0); MEAN CORPUSCULAR HEMOGLOBIN 30.7 PG (27.0-31.0); MEAN CORPUSCULAR HGB CONC 33.9 g/dL (33.0-36.5); MEAN CORPUSCULAR VOLUME 90.7 FL (78-98); MONOCYTES # (AUTO) 0.5 X10'3 (0-0.9); MONOCYTES % (AUTO) 8.2 % (2-12); NEUTROPHILS # (AUTO) 4.6 X10'3 (1.8-7.7); NEUTROPHILS % (AUTO) 74.2 % (42-75); PLATELET COUNT 220 X10'3 (140-440); RED BLOOD COUNT 4.22 X10'6 (4.20-5.60); RED CELL DISTRIBUTION WIDTH 13.3 % (11.5-14.5); WHITE BLOOD COUNT 6.2 X10'3 (4.5-11.0)
[2024-08-27 19:17] LABS: ALANINE AMINOTRANSFERASE 19 U/L (12-78); ALBUMIN 3.4 G/DL (3.4-5.0); ALBUMIN/GLOBULIN RATIO 1.1 (1.1-1.5); ALKALINE PHOSPHATASE 74 IU/L (46-116); ANION GAP 6 (8-16); ASPARTATE AMINO TRANSFERASE 10 U/L (10-37); BILIRUBIN,TOTAL 0.3 MG/DL (0.1-1.0); BLOOD UREA NITROGEN 10 MG/DL (7-18); BUN/CREATININE RATIO 12.2 (10.0-20.0); CALCIUM 8.7 MG/DL (8.5-10.1); CHLORIDE 107 MMOL/L (99-107); CREATININE 0.82 MG/DL (0.40-0.90); GLUCOSE 98 MG/DL (70-104); LIPASE 234 U/L (16-77); POTASSIUM 3.6 MMOL/L (3.5-5.1); SODIUM 143 MMOL/L (135-145); TOTAL CARBON DIOXIDE 30.1 MMOL/L (24-32); TOTAL PROTEIN 6.5 G/DL (6.4-8.2); eCRCL 70 ML/MIN; eGFR 74 ML/MIN
[2024-08-27 20:47] LABS: ETHANOL < 10 MG/DL (<10); MAGNESIUM 1.6 MG/DL (1.5-2.4)
[2024-08-27] MEDS: normal saline 1000ML IV soln IVB ONE (21:33)
[2024-08-27] MEDS ORDERED: iohexol 300mg/ml 100ml inj. ONE (22:12)
[2024-08-27 22:28] LABS: BILIRUBIN,URINE SMALL (Neg); CLARITY,URINE SLIGHTLY CLOUDY (Clear); COLOR,URINE YELLOW (Yellow); GLUCOSE, URINE NEGATIVE (Neg); KETONES,URINE TRACE mg/dl (Neg); LEUKOCYTE ESTERASE ,URINE SMALL (Neg); NITRITES, URINE POSITIVE (Neg); OCCULT BLOOD,URINE NEGATIVE (Neg); PROTEIN,URINE TRACE mg/dl (Neg); UROBILINOGEN,URINE 0.2 E.U/dL (0.2-1.0)
[2024-08-27 22:30] LABS: URINE HCG NEGATIVE (NEG)
[2024-08-27 22:31] LABS: UA COLLECTION TYPE CLN CATCH MIDSTREAM
[2024-08-27 22:34] LABS: BACTERIA,URINE 4+ /HPF (Neg); RBC,URINE NONE SEEN /HPF (0-2); SQUAMOUS EPITHELIAL CELL,UR FEW /LPF (FEW)
[2024-08-27 23:00] LABS: URINE AMPHETAMINE SCREEN NEGATIVE (Neg); URINE BARBITUATE SCREEN NEGATIVE (Neg); URINE BENZODIAZEPINES SCREEN NEGATIVE (Neg); URINE CANNABINOID SCREEN NEGATIVE (Neg); URINE COCAINE SCREEN NEGATIVE (Neg); URINE METHADONE SCREEN NEGATIVE (Neg); URINE OPIATE SCREEN NEGATIVE (Neg); URINE PHENCYCLIDINE SCREEN NEGATIVE (Neg)
[2024-08-28] MEDS ORDERED: morphine 2 MG/ML inj. syringe IV PRN (00:05)
[2024-08-28] MEDS ORDERED: magnesium Cl slow-release 64mg tablet PO PRN (00:05)
[2024-08-28] MEDS ORDERED: potassium Cl 40MEQ/1/2NS 520ml 520 ML IV PRN (00:05)
[2024-08-28] MEDS ORDERED: mag hydrox/Alum hydrox/simeth 30ml oral suspension PO PRN (00:05)
[2024-08-28] MEDS ORDERED: potassium Cl 20 mEq SR tablet PO PRN (00:05)
[2024-08-28] MEDS ORDERED: magnesium sulf-water 2g/50mL 50 ML IV PRN (00:05)
[2024-08-28] MEDS ORDERED: magnesium sulf-water 4G/100mL 100 ML IV PRN (00:05)
[2024-08-28] MEDS ORDERED: acetaminophen 325mg tablet PO PRN (00:05)
[2024-08-28] MEDS: normal saline 1000ML IV soln IVB ONE (00:44)
[2024-08-28] MEDS: CefTRIAXone 2gm/D5W 50ml BAG 50 ML IV ONE (00:44)
[2024-08-28] MEDS: nicotine 21mg patch - 24 hr TD SCH (02:06)
[2024-08-28] MEDS: morphine 4 MG/ML inj SYRINge IV ONE (02:07)
[2024-08-28] MEDS: pantoprazole 40 MG vial IV SCH (02:07)
[2024-08-28] MEDS: ondansetron/PF 4mg/2ml inj IV PRN (02:07)
[2024-08-28 02:25] LABS: LIPASE 121 U/L (16-77); MAGNESIUM 1.5 MG/DL (1.5-2.4); POTASSIUM 4.2 MMOL/L (3.5-5.1)
[2024-08-28 02:29] LABS: VALPROATE < 3.0 UG/ML (50-100)
[2024-08-28] MEDS: normal saline 1000ml 1,000 ML IV SCH (02:31)
[2024-08-28] MEDS ORDERED: NO HOME MEDS (06:00)
[2024-08-28] MEDS: morphine 2 MG/ML inj. syringe IV PRN (07:26)
[2024-08-28] MEDS: K and/or MAG REPLACEMENT MC SCH (08:00)
[2024-08-28] MEDS: docusate sod 100mg capsule PO SCH (08:44)
[2024-08-28 16:55] VITALS: BP 105/53; PULSE 53; RESP 16; TEMP 96.8; O2SAT 97
[2024-08-28] MEDS: enoxaparin 40mg/0.4ml syringe SQ SCH (19:44)
[2024-08-28 19:54] VITALS: RESP 18; O2SAT 97
[2024-08-28] MEDS: CefTRIAXone/D5W-Rocephin 1gm 50 ML IV SCH (21:57)
[2024-08-28 22:00] VITALS: BP 118/69; PULSE 61; RESP 16; TEMP 98.1; O2SAT 96
[2024-08-29] MEDS: HYDROmorphone inj. 0.5 MG/0.5 ML DISP.SYRIN IV ONE (02:58)
[2024-08-29 05:23] LABS: BASOPHILS % (AUTO) 0.8 % (0-1); EOSINOPHILS # (AUTO) 0.1 X10'3 (0-0.9); EOSINOPHILS % (AUTO) 1.1 % (0-6); HEMATOCRIT 34.8 % (35.0-45.0); HEMOGLOBIN 11.8 g/dl (12.0-16.0); LYMPHOCYTES # (AUTO) 1.5 X10'3 (1.1-4.8); LYMPHOCYTES % (AUTO) 33.4 % (21-51); MEAN CORPUSCULAR HEMOGLOBIN 30.8 PG (27.0-31.0); MEAN CORPUSCULAR VOLUME 90.8 FL (78-98); MEAN PLATELET VOLUME 9.1 FL (7.4-10.4); MONOCYTES # (AUTO) 0.5 X10'3 (0-0.9); MONOCYTES % (AUTO) 10.6 % (2-12); NEUTROPHILS # (AUTO) 2.4 X10'3 (1.8-7.7); NEUTROPHILS % (AUTO) 54.1 % (42-75); PLATELET COUNT 194 X10'3 (140-440); RED BLOOD COUNT 3.84 X10'6 (4.20-5.60); RED CELL DISTRIBUTION WIDTH 13.2 % (11.5-14.5); WHITE BLOOD COUNT 4.5 X10'3 (4.5-11.0)
[2024-08-29 05:57] LABS: ALANINE AMINOTRANSFERASE 21 U/L (12-78); ALBUMIN 2.8 G/DL (3.4-5.0); ALBUMIN/GLOBULIN RATIO 1.1 (1.1-1.5); ALKALINE PHOSPHATASE 66 IU/L (46-116); ANION GAP 9 (8-16); ASPARTATE AMINO TRANSFERASE 12 U/L (10-37); BILIRUBIN,TOTAL 0.3 MG/DL (0.1-1.0); BLOOD UREA NITROGEN 3 MG/DL (7-18); BUN/CREATININE RATIO 4.8 (10.0-20.0); CALCIUM 8.2 MG/DL (8.5-10.1); CHLORIDE 107 MMOL/L (99-107); CHOL/HDL RATIO 3.8 (0.00-4.99); CHOLESTEROL 133 MG/DL (0-200); CREATININE 0.63 MG/DL (0.40-0.90); GLUCOSE 85 MG/DL (70-104); HDL CHOLESTEROL 35 MG/DL (35-60); LDL CHOLESTEROL 84 MG/DL (50-100); MAGNESIUM 1.5 MG/DL (1.5-2.4); POTASSIUM 3.4 MMOL/L (3.5-5.1); SODIUM 141 MMOL/L (135-145); TOTAL CARBON DIOXIDE 24.7 MMOL/L (24-32); TOTAL PROTEIN 5.4 G/DL (6.4-8.2); TRIGLYCERIDES 72 MG/DL (20-135); eCRCL 91 ML/MIN; eGFR > 90 ML/MIN
[2024-08-29 08:08] LABS: C-REACTIVE PROTEIN 1.18 MG/DL (0.0-0.5)
[2024-08-29 08:41] VITALS: BP 122/55; PULSE 63; RESP 13; TEMP 97.7; O2SAT 98
[2024-08-29] MEDS: potassium Cl 20 mEq SR tablet PO PRN (08:56)
[2024-08-29] MEDS: magnesium hydroxide 30ml (MOM) UD suspension PO PRN (09:00)
[2024-08-29 10:00] VITALS: BP 122/58; PULSE 47; RESP 18; TEMP 97.8; O2SAT 99
[2024-08-29 18:00] VITALS: BP 113/42; PULSE 41; RESP 15; TEMP 97.3; O2SAT 96
[2024-08-29 22:00] VITALS: BP 113/33; PULSE 50; RESP 18; TEMP 98.3; O2SAT 99
[2024-08-30] MEDS: Melatonin 3mg tablet PO SCH (01:41)
[2024-08-30 06:00] VITALS: BP 117/65; PULSE 60; RESP 13; TEMP 98.6; O2SAT 99
[2024-08-30 07:29] LABS: BASOPHILS % (AUTO) 0.8 % (0-1); LYMPHOCYTES # (AUTO) 1.8 X10'3 (1.1-4.8); MEAN PLATELET VOLUME 9.3 FL (7.4-10.4); MONOCYTES # (AUTO) 0.3 X10'3 (0-0.9); NEUTROPHILS # (AUTO) 2.1 X10'3 (1.8-7.7); WHITE BLOOD COUNT 4.3 X10'3 (4.5-11.0)
[2024-08-30 07:31] LABS: EOSINOPHILS % (AUTO) 1.1 % (0-6); HEMATOCRIT 38.4 % (35.0-45.0); HEMOGLOBIN 13.3 g/dl (12.0-16.0); LYMPHOCYTES % (AUTO) 41.8 % (21-51); MEAN CORPUSCULAR HEMOGLOBIN 31.2 PG (27.0-31.0); MEAN CORPUSCULAR HGB CONC 34.7 g/dL (33.0-36.5); MEAN CORPUSCULAR VOLUME 89.9 FL (78-98); MONOCYTES % (AUTO) 7.7 % (2-12); NEUTROPHILS % (AUTO) 48.6 % (42-75); PLATELET COUNT 230 X10'3 (140-440); RED BLOOD COUNT 4.27 X10'6 (4.20-5.60); RED CELL DISTRIBUTION WIDTH 12.6 % (11.5-14.5)
[2024-08-30 08:05] LABS: ALANINE AMINOTRANSFERASE 21 U/L (12-78); ALBUMIN 3.2 G/DL (3.4-5.0); ALBUMIN/GLOBULIN RATIO 1.1 (1.1-1.5); ALKALINE PHOSPHATASE 68 IU/L (46-116); ANION GAP 4 (8-16); ASPARTATE AMINO TRANSFERASE 13 U/L (10-37); BILIRUBIN,TOTAL 0.4 MG/DL (0.1-1.0); BLOOD UREA NITROGEN 3 MG/DL (7-18); BUN/CREATININE RATIO 4.5 (10.0-20.0); C-REACTIVE PROTEIN 0.87 MG/DL (0.0-0.5); CALCIUM 8.6 MG/DL (8.5-10.1); CHLORIDE 106 MMOL/L (99-107); CREATININE 0.66 MG/DL (0.40-0.90); GLUCOSE 99 MG/DL (70-104); MAGNESIUM 1.7 MG/DL (1.5-2.4); POTASSIUM 4.3 MMOL/L (3.5-5.1); SODIUM 142 MMOL/L (135-145); TOTAL CARBON DIOXIDE 31.6 MMOL/L (24-32); TOTAL PROTEIN 6.2 G/DL (6.4-8.2); eCRCL 87 ML/MIN; eGFR > 90 ML/MIN
[2024-08-30] MEDS ORDERED: ONDA-103 PO (10:48)
== END 2024-08-30 14:11 | disposition home or self-care (01) | DRG 689 ==
LOC: ER 17:16 → ED HOLD 08-28 00:07 → ORTHO 4S 08-28 16:37
PROVIDERS: ADMIT Surgery; ATTEND Nurse Practitioner Family
PROC: BW251ZZ Computerized Tomography (CT Scan) of Chest, Abdomen and Pelvis using Low Osmolar Contrast (ICD-10-PCS; principal; 2024-08-27)
DX: N39.0 Urinary tract infection, site not specified (principal); K85.90 Acute pancreatitis without necrosis or infection, unspecified; E44.0 Moderate protein-calorie malnutrition; Z68.1 Body mass index [BMI] 19.9 or less, adult; F25.9 Schizoaffective disorder, unspecified; F32.A Depression, unspecified; F41.9 Anxiety disorder, unspecified; Z87.891 Personal history of nicotine dependence; Z98.51 Tubal ligation status; T50.905A Adverse effect of unspecified drugs, medicaments and biological substances, initial encounter; Y92.9 Unspecified place or not applicable; B96.20 Unspecified Escherichia coli [E. coli] as the cause of diseases classified elsewhere
CPT/HCPCS: 36415; 71260; 74177; 76700; 80053; 80061; 80164; 80305; 80320; 81001; 81025; 83690; 83735; 84132; 85025; 86140; 87077; 87081; 87088; 87186; 99285; G0378; J0696; J1171; J1650; J2270; J2405; J2470; J7030; Q9967

== ENCOUNTER 2024-08-31 10:27 | Emergency (ER) | payer MEDICARE ==
[~2024-08-31] VITALS: Ht 170.2 cm; Wt 53.6 kg
[~2024-08-31 10:27] MED LIST changes: -BENZ2TAB PO; -BUPR150T27 PO; -CLON0.5T4 PO; -CLOZ200T8 PO; -DIVA500T9 PO; -HALO20TA7 PO; -LAMO200T10 PO; +NO HOME MEDS; +ONDA-103 PO; -VENL150T3 PO
[2024-08-31 10:28] VITALS: TEMP 97.5
[2024-08-31] MEDS: ondansetron/PF 4mg/2ml inj IV ONE (10:45)
[2024-08-31] MEDS: morphine 4 MG/ML inj SYRINge IV PRN (10:45)
[2024-08-31 11:42] LABS: BASOPHILS # (AUTO) 0.1 X10'3 (0-0.2); BASOPHILS % (AUTO) 1.2 % (0-1); EOSINOPHILS # (AUTO) 0.1 X10'3 (0-0.9); EOSINOPHILS % (AUTO) 1.4 % (0-6); HEMATOCRIT 39.5 % (35.0-45.0); HEMOGLOBIN 13.4 g/dl (12.0-16.0); LYMPHOCYTES # (AUTO) 2.1 X10'3 (1.1-4.8); LYMPHOCYTES % (AUTO) 45.8 % (21-51); MEAN CORPUSCULAR HEMOGLOBIN 30.6 PG (27.0-31.0); MEAN CORPUSCULAR VOLUME 90.2 FL (78-98); MEAN PLATELET VOLUME 9.5 FL (7.4-10.4); MONOCYTES # (AUTO) 0.3 X10'3 (0-0.9); MONOCYTES % (AUTO) 6.6 % (2-12); PLATELET COUNT 252 X10'3 (140-440); RED BLOOD COUNT 4.38 X10'6 (4.20-5.60); RED CELL DISTRIBUTION WIDTH 12.8 % (11.5-14.5); WHITE BLOOD COUNT 4.5 X10'3 (4.5-11.0)
[2024-08-31 11:50] LABS: ALANINE AMINOTRANSFERASE 20 U/L (12-78); ALBUMIN 3.3 G/DL (3.4-5.0); ALBUMIN/GLOBULIN RATIO 1.1 (1.1-1.5); ALKALINE PHOSPHATASE 66 IU/L (46-116); ANION GAP 5 (8-16); ASPARTATE AMINO TRANSFERASE 11 U/L (10-37); BILIRUBIN,TOTAL 0.4 MG/DL (0.1-1.0); BLOOD UREA NITROGEN 3 MG/DL (7-18); BUN/CREATININE RATIO 4.3 (10.0-20.0); CALCIUM 8.9 MG/DL (8.5-10.1); CHLORIDE 107 MMOL/L (99-107); GLUCOSE 112 MG/DL (70-104); LIPASE 23 U/L (16-77); POTASSIUM 3.3 MMOL/L (3.5-5.1); SODIUM 144 MMOL/L (135-145); TOTAL CARBON DIOXIDE 31.7 MMOL/L (24-32); TOTAL PROTEIN 6.2 G/DL (6.4-8.2); eCRCL 81 ML/MIN; eGFR 89 ML/MIN
[2024-08-31 12:35] VITALS: BP 111/80; PULSE 89; RESP 16; O2SAT 99
== END 2024-08-31 12:37 | disposition home or self-care (01) ==
LOC: ER 10:28
DX: K29.00 Acute gastritis without bleeding (principal); F32.A Depression, unspecified; F20.9 Schizophrenia, unspecified; F41.9 Anxiety disorder, unspecified; Z98.51 Tubal ligation status
CPT/HCPCS: 36415; 80053; 83690; 84484; 85025; 96374; 96375; 99284; J2270; J2405

== ENCOUNTER 2024-10-10 13:03 | Outpatient (CLI) | payer MEDICARE | END 2024-10-10 23:59 | disposition home or self-care (01) | LOC: RAD 13:03 | PROVIDERS: ATTEND Nurse Practitioner Psychiatric/Mental Health | DX: F25.0 Schizoaffective disorder, bipolar type (principal); Z79.899 Other long term (current) drug therapy | CPT/HCPCS: 93005 ==

== ENCOUNTER 2025-02-01 19:08 | Emergency (ER) | payer MEDICARE ==
[~2025-02-01] VITALS: Ht 170.2 cm; Wt 65.1 kg
[2025-02-01 19:10] VITALS: BP 126/76; PULSE 88; RESP 18; TEMP 98; O2SAT 100
--- NOTE | 2025-02-01 20:03 | Physician Documentation ---
HPI ~ General Chief Complaint: Medication Request Stated Complaint: MEDICATION REQUEST Time Seen by MD: 19:25 OK to notify your PCP?: Yes Primary Medical Doctor: Dr. Ordonez Source: patient Mode of Arrival: POV Exam Limitations: no limitations History of Present Illness HPI Comments Corky is a 49-year-old female who is requesting a refill of her medications. She remembers that she takes lithium but does not recall the rest of the list and she is actively working to figure out what med she takes. Medication Reconciliation Allergies: Coded Allergies: No Known Drug Allergies (Verified Allergy, Severe, 02/01/25) Scheduled PRN Ondansetron HCl (Ondansetron HCl), 1 TAB PO Q8H PRN for nausea/vomiting Miscellaneous Medications Home Med List (No Home Medications), (Reported) Past Medical History Past Medical History: Seizures, Pancreatitis, Anxiety, Depression, Schizoph jordan Past Surgical History: tubal ligation Patient History: Patient reports no known family medical history. Alcohol Use: Sober Drug Use: none Lives with: Family Lives In: Home Occupation: employed Physical Exam Physical Exam Vital Signs: Temperature: 98.0, Source: Oral, Heart Rate: 88, Respiratory Rate: 18, BP: 126/76, Pulse Oximetry: 100, Weight: 65.100 Progress Results/Orders Results/Orders Vital Signs 02/01/25 19:10 Temp 98.0 Pulse 88 Resp 18 B/P (MAP) 126/76 Pulse Ox 100 Medical Decision Making Findings This person left after MSE exam stating that her found her medications and no longer needs a refill. Departure Disposition: 07 LEFT AWOL/ELOPED Impression: Primary Impression: Eloped from emergency department Condition: Stable Referrals: NO PRIMARY CARE PROVIDER (PCP) Additional Comment Medical Screen Exam This patient recieved a medical screening examination. After reviewing the individual's medical complaints with presenting symptoms and performing an appropriate physical examination, it was determined that no emergency medical condition is present. This individual is also not a women having contractions. Signature Scribe Signature: . Attestation: Scribed for Emergency,Department by Myrna Asencio NP . 02/01/25 20:02 MYRNA GUTIERREZ February 01, 2025 20:03
== END 2025-02-01 20:06 | disposition left against medical advice (07) ==
LOC: ER 19:09
DX: Z00.8 Encounter for other general examination (principal); F20.9 Schizophrenia, unspecified; F32.A Depression, unspecified; Z98.51 Tubal ligation status
CPT/HCPCS: 99281